=== PATIENT | female | born 1995 | race American Indian/Alaskan Native ===

== ENCOUNTER 2017-11-12 15:20 | Outpatient (CLI) | payer BC, MEDICAID ==
--- NOTE | 2017-11-12 15:36 | XRay Report ---
KUB: 11/12/17 CLINICAL: Missing IUD FINDINGS: No IUD is identified. The soft tissues are normal. Normal bowel gas pattern. No mass or suspicious calcifications. The bones are normal. IMPRESSION: Normal abdomen with no IUD identified.
== END 2017-11-12 15:21 | disposition home or self-care (01) ==
LOC: SPVIMAG 15:20
PROVIDERS: ATTEND Obstetrics & Gynecology
DX: Z30.431 Encounter for routine checking of intrauterine contraceptive device (principal)
CPT/HCPCS: 74018